=== PATIENT | male | born 1985 | race Hispanic/Latino ===

== ENCOUNTER 2017-07-05 16:31 | Emergency (ER) | payer OTHER ==
[~2017-07-05] VITALS: Ht 175.3 cm; Wt 125.2 kg
[~2017-07-05 16:31] MED LIST: ACETAMINOPHEN-1 EAC1 PO; ACYCLOVIR200 MG PO; ADVIL200 MG PO; ANAPROX DS550 MG PO; CEPHALEXIN500 MG PO; CRUTCH1 EACH; DAY TIME COLD-296 ML PO; DICLOFENAC SODI50 MG PO; DOXYCYCLINE HY100 MG PO; GUAIATUSSIN AC10 ML PO; IBUPROFEN800 MG; IBUPROFEN800 MG PO; LEVAQUIN500 MG PO; LIDOCAINE HCL100 ML MT; NAPROSYN500 MG PO; NORCO 5-325 TA1 EACH PO; NYQUIL D COLD295 ML PO; OMEPRAZOLE20 MG PO; PERCOCET 5-3251 EACH PO; PREDNISONE20 MG PO; PRILOSEC20 MG PO; PROCHLORPERAZIN10 MG PO; PROMETHAZINE HC25 M1 PO; TRAMADOL HCL50 MG PO; TYLENOL EXTRA500 MG PO; ZOFRAN ODT4 MG PO; ZOFRAN ODT8 MG PO
[2017-07-05] MEDS ORDERED: CELEBREX100 MG PO (16:39)
[2017-07-05] MEDS ORDERED: PROTONIX40 MG PO (16:39)
[2017-07-05] MEDS ORDERED: ZANTAC150 MG PO (17:54)
== END 2017-07-05 18:20 | disposition home or self-care (01) ==
LOC: ED 16:31
DX: K92.0 Hematemesis (principal); T39.395A Adverse effect of other nonsteroidal anti-inflammatory drugs [NSAID], initial encounter; K21.9 Gastro-esophageal reflux disease without esophagitis; Z87.891 Personal history of nicotine dependence
CPT/HCPCS: 80053; 82150; 83690; 85025; 85610; 85730; 96374; 96375; 99283; J2405

== ENCOUNTER 2018-01-04 14:43 | Emergency (ER) | payer OTHER ==
[~2018-01-04] VITALS: Ht 175.3 cm; Wt 129.7 kg
[~2018-01-04 14:43] MED LIST changes: +CELEBREX100 MG PO; +PROTONIX40 MG PO; +ZANTAC150 MG PO
[2018-01-04] MEDS ORDERED: ONDANSETRON ODT8 MG PO (16:26)
== END 2018-01-04 16:30 | disposition home or self-care (01) ==
LOC: ED 14:43
DX: S09.90XA Unspecified injury of head, initial encounter (principal); W20.8XXA Other cause of strike by thrown, projected or falling object, initial encounter; K21.9 Gastro-esophageal reflux disease without esophagitis; Z87.891 Personal history of nicotine dependence; Z79.899 Other long term (current) drug therapy
CPT/HCPCS: 70450; 80053; 85025; 96374; 96375; 99284; J1885; J2405; J7030

== ENCOUNTER 2018-04-05 14:08 | Emergency (ER) | payer OTHER ==
[~2018-04-05] VITALS: Ht 175.3 cm; Wt 129.7 kg
[~2018-04-05 14:08] MED LIST changes: +ONDANSETRON ODT8 MG PO
[2018-04-05] MEDS ORDERED: OMEPRAZOLE20 MG PO (14:33)
--- OUTSIDE RECORDS SUMMARY | 2018-04-05 16:26 | XMS ---
PreManage Notification: RAFFI MARTIN Security Trimmer Machine Events No recent Security Events currently on file CRITERIA MET - Group Notification CARE PROVIDERS There are no care providers on record at this time. [facility] has no Care Guidelines for this patient. [place] VISIT COUNT (12 MO.) 3 [facility] TOTAL 3 NOTE: Visits indicate total known visits. 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
[2018-04-05] MEDS ORDERED: NORCO 5-325 TA1 EACH PO (16:31)
[2018-04-05] MEDS ORDERED: ZOFRAN ODT4 MG PO (16:31)
== END 2018-04-05 16:40 | disposition home or self-care (01) ==
LOC: ED 14:08
DX: K52.9 Noninfective gastroenteritis and colitis, unspecified (principal); K21.9 Gastro-esophageal reflux disease without esophagitis; Z79.899 Other long term (current) drug therapy
CPT/HCPCS: 74177; 80053; 81001; 83690; 85025; 96374; 96375; 99284; J1170; J2405; Q9967

== ENCOUNTER 2019-05-17 12:33 | Emergency (ER) | payer OTHER ==
[~2019-05-17] VITALS: Ht 175.3 cm; Wt 134.7 kg
[~2019-05-17 12:33] MED LIST changes: +GABAPENTIN100 MG; +IBUPROFEN100 MG/5 M; +IBUPROFEN200 M1 PO; +KEFLEX500 MG PO; +OMEPRAZOLE5 GM; +TRAMADOL HCL50 MG; +ULTRAM50 MG PO
--- OUTSIDE RECORDS SUMMARY | 2019-05-17 12:36 | XMS ---
PreManage Notification: RAFFI MARTIN Security Manager Ship Events No recent Security Events currently on file CRITERIA MET - Group Notification - [facility] - Has Care Guidelines - PDMP CARE PROVIDERS LATASHA WERNER Physician Jack [employer] All Trades 03/13/2019-Current PHONE: Unknown MELODIE SMITH Internal Medicine 04/06/2018-Current PHONE: Unknown Guidelines Source: [facility] Guidelines Date: 03/16/2019 Care Coordination: Mental health services are being provided by [facility].\T\nbsp; Please contact [facility] with mental health concerns.\T\nbsp; [place]/Daw[place] Sawant: [phone]\T\nbsp; [place]: [phone]. Care History Medical/Surgical 04/06/2018 [facility] - Patient is currently established with [facility]. If patient is seen in the ED during business hours. Please contact CHWs at [facility]. Care Recommendation: This patient has had 5 or more Emergency Department visits in the last 12 months.\T\nbsp; Patient requires education on the scope and purpose of the ED as an acute care provider not a Primary Care Provider and should not be utilized for chronic conditions.\T\nbsp; These are guidelines and the provider should exercise clinical judgment when providing care. E.D. VISIT COUNT (12 MO.) 2 CLAYTON Jarvis TOTAL 2 NOTE: Visits indicate total known visits. ED/UCC VISIT TRACKING (12 MO.) 05/17/2019 12:34 [facility] [place] TYPE: Emergency COMPLAINT: - ABD PAIN 03/11/2019 22:[address] [facility] [place] TYPE: Emergency COMPLAINT: - KNEE INJURY DIAGNOSES: - Unspecified internal derangement of right knee - Pain in left knee INPATIENT VISIT TRACKING (12 MO.) No inpatient visits to display in this time frame [id number]
[2019-05-17] MEDS ORDERED: ULTRAM50 MG PO (15:06)
== END 2019-05-17 15:51 | disposition home or self-care (01) ==
LOC: ED 12:33
DX: R10.31 Right lower quadrant pain (principal); K21.9 Gastro-esophageal reflux disease without esophagitis; Z79.899 Other long term (current) drug therapy
CPT/HCPCS: 74177; 80053; 81001; 83690; 85025; 99284-25; C9113; J1885; J2405; Q9967

== ENCOUNTER 2019-05-22 13:17 | Emergency (ER) | payer OTHER ==
[~2019-05-22] VITALS: Ht 175.3 cm; Wt 142.9 kg
--- OUTSIDE RECORDS SUMMARY | 2019-05-22 13:20 | XMS ---
PreManage Notification: RAFFI MARTIN Security Sales And Marketing Representative Events No recent Security Events currently on file CRITERIA MET - Group Notification - [facility] - Has Care Guidelines - PDMP - [facility] - 2 Visits in 30 Days CARE PROVIDERS LATASHA WERNER Physician Air Brake Man 03/13/2019-Current PHONE: Unknown MELODIE SMITH Internal Medicine 04/06/2018-Current PHONE: Unknown Guidelines [facility] Date: 03/16/2019 Care Coordination: Mental health services are being provided by [facility].\T\nbsp; Please contact [facility] with mental health concerns.\T\nbsp; [place]/Dawson Sawant: \T\nbsp; [place]: [phone]. Care History Medical/Surgical 04/06/2018 [facility] - Patient is currently established with [facility]. If patient is seen in the ED during business hours. Please contact CHWs at [facility]. Care Recommendation: This patient has had 5 [...] providing care. E.D. VISIT COUNT (12 MO.) 3 CLAYTON Jarvis TOTAL 3 NOTE: Visits indicate total known visits. ED/UCC VISIT TRACKING (12 MO.) 05/22/2019 13:17 [facility] [place] TYPE: Emergency COMPLAINT: - GLF 05/17/2019 12:34 [facility] [place] TYPE: Emergency COMPLAINT: - ABD PAIN DIAGNOSES: - Right lower quadrant pain - Right lower quadrant pain - Other long-term (current) drug therapy - Unspecified abdominal pain - Left lower quadrant pain - Gastro-esophageal reflux disease without esophagitis 03/11/2019 22:56 [facility] [place] TYPE: Emergency COMPLAINT: - KNEE INJURY DIAGNOSES: - Unspecified internal derangement of right knee - Pain in left knee INPATIENT VISIT TRACKING (12 MO.) No inpatient visits to display in this time frame [email or web address]
--- NOTE | 2019-05-22 21:57 | EKG ---
[facility] [address] [facility] [place] [address] Signed Normal sinus rhythm Possible Left atrial enlargement Left axis deviation Inferior infarct , age undetermined Abnormal ECG When compared with ECG of 24-JAN-2019 09:19, Inferior infarct is now present Confirmed by MARVIN URBANO MD ([id number]) on 05/22/2019 9:56:55 PM Electronically Signed By: MARVIN URBANO MD 05/22/19 2157 PATIENT NAME: DIONNEMARCORAFFI Electrocardiogram DATE OF : 83 PHYSICIAN: MARVIN URBANO MD REPORT #: [id number] REPORT IS CONFIDENTIAL AND NOT TO BE RELEASED WITHOUT AUTHORIZATION
== END 2019-05-22 16:00 | disposition home or self-care (01) ==
LOC: ED 13:17
DX: R55 Syncope and collapse (principal)
CPT/HCPCS: 70450; 71260; 72125; 80053; 84484; 85025; 93005; 93010; 96374; 99284-25; J1885; Q9967

== ENCOUNTER 2019-06-12 00:49 | Emergency (ER) | payer OTHER ==
[~2019-06-12] VITALS: Ht 175.3 cm; Wt 142.9 kg
--- OUTSIDE RECORDS SUMMARY | 2019-06-12 00:52 | XMS ---
PreManage Notification: RAFFI MARTIN Security Process Improvement Specialist Events No recent Security Events currently on file CRITERIA MET - Group Notification - [facility] - Has Care Guidelines - PDMP - [facility] - 2 Visits in 30 Days CARE PROVIDERS LATASHA WERNER Physician City Editor 03/13/2019-Current PHONE: Unknown MELODIE SMITH Internal Medicine 04/06/2018-Current PHONE: Unknown Guidelines Source: [facility] Guidelines Date: 03/16/2019 Care Coordination: Mental health services are being provided by [facility].\T\nbsp; Please contact [facility] with mental health concerns.\T\nbsp; [place]/Dawson Sawant: \T\nbsp; [place]: [phone]. E.D. VISIT COUNT (12 MO.) 4 CLAYTON Jarvis TOTAL 4 NOTE: Visits indicate total known visits. ED/UCC VISIT TRACKING (12 MO.) 06/12/2019 00:50 [facility] [place] TYPE: Emergency COMPLAINT: - OD 05/22/2019 13:17 [facility] [place] TYPE: Emergency COMPLAINT: - GLF DIAGNOSES: - Syncope and collapse 05/17/2019 12:34 [facility] [place] TYPE: Emergency COMPLAINT: - ABD PAIN DIAGNOSES: - Right lower quadrant pain - Right lower quadrant pain - Other senior care (current) drug therapy - Unspecified abdominal pain - Left lower quadrant pain - Gastro-esophageal reflux disease without esophagitis 03/11/2019 22:56 [facility] [place] TYPE: Emergency COMPLAINT: - KNEE INJURY DIAGNOSES: - Unspecified internal derangement of right knee - Pain in left knee INPATIENT VISIT TRACKING (12 MO.) No inpatient visits to display in this time frame [id number]
[2019-06-12] MEDS ORDERED: NEURONTIN300 MG PO (01:03)
--- NOTE | 2019-06-12 19:28 | EKG ---
[facility] [address] [facility] [place], [place] [address] Signed Normal sinus rhythm Normal ECG When compared with ECG of 22-MAY-2019 13:44, QRS axis shifted right Criteria for Inferior infarct are no longer present Confirmed by CORINE BEGUM DO ([id number]) on 06/12/2019 7:28:05 PM Electronically Signed By: CORINE BEGUM DO 06/12/19 1928 PATIENT NAME: RAFFI MARTIN Electrocardiogram DATE OF : [birth year] PHYSICIAN: CORINE BEGUM DO REPORT #: [id number] REPORT IS CONFIDENTIAL AND NOT TO BE RELEASED WITHOUT AUTHORIZATION
== END 2019-06-12 04:00 | disposition home or self-care (01) ==
LOC: ED 00:49
DX: T42.6X2A Poisoning by other antiepileptic and sedative-hypnotic drugs, intentional self-harm, initial encounter (principal); K21.9 Gastro-esophageal reflux disease without esophagitis; Z79.899 Other long term (current) drug therapy
CPT/HCPCS: 80053; 80176; 81001; 84443; 85025; 93005; 93010; 99284-25; G0480

== ENCOUNTER 2019-06-30 06:00 | Day surgery (SDC) | payer OTHER ==
[~2019-06-30] VITALS: Ht 175.3 cm; Wt 131.5 kg
[~2019-06-30 06:00] MED LIST changes: +NEURONTIN300 MG PO
--- NOTE | 2019-06-30 08:11 | NUR ---
06/30/19 0811 Brie Hartman 0810- PT TO PACU IN LL POSITION EYES CLOSED. BREATHING EASY AND UNLABORED SP02 >95% ON 6 RENATA VIA SIMPLE MASK. VENTILATING WELL. REPORT RECEIVED FROM SOLE DYER.
--- NOTE | 2019-07-01 06:35 | OR ---
[facility] [address] [place], [place] [address] Signed DATE OF OPERATION: 06/30/2019 SURGEON: Debbie Sibley MD PREOPERATIVE DIAGNOSES: 1. Chronic diarrhea. 2. Guaiac-positive stool. 3. Pruritus ani. POSTOPERATIVE DIAGNOSES: 1. 8 mm polyp at 5 cm. 2. 10 mm polyp at 30 cm. 3. 8 mm polyp at 38 cm. 4. 6 mm polyp at 60 cm. 5. 6 mm polyp at 20 cm. 6. Pruritus ani. PROCEDURE: Colonoscopy with snare polypectomy, hot biopsy, and random cold biopsies. ESTIMATED BLOOD LOSS: None. INDICATIONS: Raffi is a 33-year-old obese gentleman with a very full round face and very heavy neck. He has very severe sleep apnea. He has to use CPAP at home. He has been through a knee arthroscopy and had to have an anesthesia provider help him rather significantly during the procedure. In the meantime, he has been asked to see me for a colonoscopy. He said he has had diarrhea for at least 15 years. He also has guaiac-positive stool. His blood work and his stool studies were ordered, but they are still pending. He had an upper endoscopy in 2016. He had gastric duodenitis with two ulcers in the antrum along with a small hiatal hernia. He had just a little esophagitis in his distal esophagus. He has been doing well on his omeprazole. He is also complaining about significant pruritus ani. He had been asked to see me with respect to the above for colonoscopy. I gave him our handout on pruritus ani and we went through that in great detail. We also went through colonoscopy. He understands the nature of the colonoscopy along with its risks including, but not limited to gas bloating, crampy abdominal pain, bleeding, perforation requiring surgery, and missed diagnosis. In addition, he understands the need for the IV conscious sedation. Because of what we described above, he requires an anesthesia provider to help with increased monitoring of his airway as Electronically Signed By: DEBBIE SIBLEY MD 07/01/19 0635 PATIENT NAME: RAFFI MARTIN OPERATIVE REPORT DATE OF : [birth year] REPORT #: [id number] PHYSICIAN: DEBBIE SIBLEY MD PCP: LATASHA WERNER PAC REPORT IS CONFIDENTIAL AND NOT TO BE RELEASED WITHOUT AUTHORIZATION [facility] [address] [place] [address] Signed well as sedation with propofol. In fact that proved to be a hurtado decision today. He required constant airway control. He and his had expressed understanding and wished to proceed. PROCEDURE NOTE: Raffi was taken into our endoscopy suite and placed in the left lateral decubitus position. We could easily see moderately significant pruritus ani with irritation and islands of granulation tissue around his anus. He has no external hemorrhoids. He had good sphincter tone. His prostate gland is soft. The adult colonoscope was introduced and advanced under direct visualization of the camera. We could easily see the appendiceal orifice and the ileocecal valve. We took pictures throughout for photodocumentation. We made several attempts to pass the scope into the terminal ileum without success. The scope was then slowly withdrawn. We have taken random cold biopsies throughout the colon because of the history of diarrhea. However, we saw no evidence of any inflammatory changes throughout the colon. Also, he had a number of fairly significant polyps spread throughout the colon as described above. We took those out with a combination of the snare and a hot biopsy forceps. I believe there was a polyp at 38 cm that we were unable to capture. Once in the rectum, the scope had been retroflexed and really no additional pathology noted above the anal canal. The rectum itself was unremarkable. After this, the gas was suctioned out. The colonoscope removed. Raffi tolerated the procedure quite well. RECOMMENDATIONS: I will see Raffi back in my office in 7 to 14 days to review his results. Debbie Sibley MD [facility]/MODL /[id number] cc: MD Sami Staton MD Electronically Signed By: DEBBIE SIBLEY MD 07/01/19 0635 PATIENT NAME: RAFFI MARTIN OPERATIVE REPORT DATE OF : [birth year] REPORT #: [id number] PHYSICIAN: DEBBIE SIBLEY MD PCP: LATASHA WERNER PAC REPORT IS CONFIDENTIAL AND NOT TO BE RELEASED WITHOUT AUTHORIZATION [facility] [address] [place] [address] Signed Copies: CELESTINO EUGENE MD, ANDREW L MD ~ Electronically Signed By: DEBBIE SIBLEY MD 07/01/19 0635 PATIENT NAME: MARIORAFFI OPERATIVE REPORT DATE OF : [birth year] REPORT #: [id number] PHYSICIAN: DEBBIE SIBLEY MD PCP: LATASHA WERNER PAC REPORT IS CONFIDENTIAL AND NOT TO BE RELEASED WITHOUT AUTHORIZATION
--- NOTE | 2019-07-03 11:58 | PATH ---
[facility] [address] [place], [place] [address] Signed SPECIMEN(S): A COLON POLYP AT 5 CM SPECIMEN(S): B COLON POLPY AT 30 CM SPECIMEN(S): C COLON POLYP AT 38 CM SPECIMEN(S): D RANDOM COLON SPECIMEN(S): E COLON POLYP AT 60 CM SPECIMEN(S): F COLON POLYP AT 28 CM SPECIMEN SOURCE: A. COLON POLYP AT 5 CM B. COLON POLPY AT 30 CM C. COLON POLYP AT 38 CM D. RANDOM COLON E. COLON POLYP AT 60 CM F. COLON POLYP AT 28 CM CLINICAL HISTORY: History of diarrhea. Post: Multiple polyps. Pruritus ani. MICROSCOPIC DESCRIPTION: Histologic sections of all submitted blocks are examined by light microscopy. These findings, together with the gross examination, support the pathologic diagnosis. FINAL PATHOLOGIC DIAGNOSIS: A. Colon polyp at 5 cm, biopsies: - Fragments of tubular adenoma. B. Colon polyp at 30 cm, biopsies: - Fragments of tubular adenoma. C. Colon polyp at 38 cm, biopsy: - Tubular adenoma. D. Random colon, biopsies: - Unremarkable colonic mucosa. - Negative for active colitis, granulomas or dysplasia. E. Colon polyp at 60 cm, biopsy: - Tubular adenoma. F. Colon polyp at 28 cm, biopsy: - Tubular adenoma. AMB:emb:C2NR GROSS DESCRIPTION: Six specimens are received in six containers, labeled "RS." A. The specimen, labeled "RS, colon polyp at 5 cm," is received in formalin PATIENT NAME: RAFFI MARTIN PATHOLOGY DATE OF : [birth year] REPORT #: [id number] PHYSICIAN: TOVA DRAKE PCP: LATASHA WERNER PAC REPORT IS CONFIDENTIAL AND NOT TO BE RELEASED WITHOUT AUTHORIZATION [facility] [address] [place], [place] [address] Signed and consists of a single 1.0 cm, young-brown, polypoid nodule. The specimen is inked, bisected and entirely submitted in cassette (A1). B. The specimen, labeled "RS, colon polyp at 30 cm," is received in formalin and consists of a single 0.7 cm, red-brown, polypoid nodule. The specimen is inked, bisected and entirely submitted in cassette (B1). C. The specimen, labeled "RS, colon polyp at 38 cm," is received in formalin and consists of a single 0.5 cm, red-brown, polypoid nodule. The specimen is entirely submitted in cassette (C1). D. The specimen, labeled "RS, random colon," is received in formalin and consists of five, 0.2-0.3 cm, young-brown tissue fragments. The specimen is entirely submitted in cassette (D1). E. The specimen, labeled "RS, colon polyp at 60 cm," is received in formalin and consists of a single 0.3 cm, young tissue fragment. The specimen is entirely submitted in cassette (E1). F. The specimen, labeled "RS, colon polyp at 28 cm," is received in formalin and consists of a single 0.8 cm, red-brown, polypoid nodule. The specimen is inked, bisected and entirely submitted in cassette (F1). AM (under the direct supervision of a pathologist) The Gross Description was prepared using a voice recognition system. The report was reviewed for accuracy; however, sound-alike word errors, addition and/or deletions may occur. If there is any question about this report, please contact Client Services. PERFORMING LABORATORY: The technical component was performed by [facility], [address] [place] [address] (Editor Farm Journal: Radha Gallo MD; CLIA# [id number]). Professional interpretation was performed by [facility], [address] [address] (Editor Farm Journal: Hugh Mcclellan M.D.; CLIA#: [id number]). Diagnostician: Radha Gallo MD Pathologist Electronically Signed 07/03/2019 Copies: PATIENT NAME: RAFFI MARTIN PATHOLOGY DATE OF : [birth year] REPORT #: [id number] PHYSICIAN: TOVA PATHOLOGY PCP: LATASHA WERNER PAC REPORT IS CONFIDENTIAL AND NOT TO BE RELEASED WITHOUT AUTHORIZATION [facility] [address] [place] [address] Signed ~ PATIENT NAME: RAFFI MARTIN PATHOLOGY DATE OF : [birth year] REPORT #: [id number] PHYSICIAN: TOVA DRAKE PCP: LATASHA WERNER PAC REPORT IS CONFIDENTIAL AND NOT TO BE RELEASED WITHOUT AUTHORIZATION
== END 2019-06-30 09:13 | disposition home or self-care (01) ==
LOC: DS 06:00 → OPS 06:00 → DS 06:45 → OPS 09:13
PROVIDERS: Colon & Rectal Surgery
PROC: 0DBE8ZZ Excision of Large Intestine, Via Natural or Artificial Opening Endoscopic (ICD-10-PCS; principal; 2019-06-30 06:45)
DX: D12.6 Benign neoplasm of colon, unspecified (principal); K52.9 Noninfective gastroenteritis and colitis, unspecified; L29.0 Pruritus ani; J32.9 Chronic sinusitis, unspecified; J45.909 Unspecified asthma, uncomplicated; F41.9 Anxiety disorder, unspecified; E66.01 Morbid (severe) obesity due to excess calories; G47.30 Sleep apnea, unspecified; Z98.890 Other specified postprocedural states; Z87.891 Personal history of nicotine dependence; Z68.42 Body mass index [BMI] 45.0-49.9, adult; Z79.899 Other long term (current) drug therapy
CPT/HCPCS: J2250; J2704; J3010; J7121

== ENCOUNTER 2019-07-24 12:06 | Emergency (ER) | payer OTHER ==
[~2019-07-24] VITALS: Ht 175.3 cm; Wt 130.6 kg
--- OUTSIDE RECORDS SUMMARY | 2019-07-24 12:10 | XMS ---
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 Carriage Operator Events No recent Security Events currently on file CRITERIA MET - Group Notification - [facility] Has Care Guidelines - PDMP CARE PROVIDERS LATASHA WERNER Physician Mill Laborer 03/13/2019-Current [place] PHONE: Unknown MELODIE SMITH Internal Medicine 04/06/2018-Current PHONE: Unknown Guidelines [email or web address] Guidelines Date: 03/16/2019 Care Coordination: Mental health services are being provided by [facility].\T\nbsp; Please contact [facility] with mental health concerns.\T\nbsp; [place]/Dawson Sawant: [phone]\T\nbsp; [place]: [phone]. E.D. VISIT COUNT (12 MO.) [address] [facility] TOTAL 5 NOTE: Visits indicate total known visits. ED/UCC VISIT TRACKING (12 MO.) 07/24/2019 12:07 [facility] [place] TYPE: Emergency COMPLAINT: - KNEE PAIN, INJ 06/12/2019 00:50 [facility] [place] TYPE: Emergency COMPLAINT: - OD DIAGNOSES: - Poisn by oth antieplptc and sed-hypntc drugs, slf-hrm, init - Other mcc (current) drug therapy - Dizziness and giddiness - Gastro-esophageal reflux disease without esophagitis 05/22/2019 13:17 [facility] [place] TYPE: Emergency COMPLAINT: - GLF DIAGNOSES: - Syncope and collapse 05/17/2019 12:34 [facility] [place] TYPE: Emergency COMPLAINT: - ABD PAIN DIAGNOSES: - Right lower quadrant pain - Right lower quadrant pain - Other mcc (current) drug therapy - Unspecified abdominal pain - Left lower quadrant pain - Gastro-esophageal reflux disease without esophagitis 03/11/2019 22:56 [facility] [place] TYPE: Emergency COMPLAINT: - KNEE INJURY DIAGNOSES: - Unspecified internal derangement of right knee - Pain in left knee INPATIENT VISIT TRACKING (12 MO.) No inpatient visits to display in this time frame [email or web address]
[2019-07-24] MEDS ORDERED: NORCO 5-325 TA1 EACH PO (13:48)
== END 2019-07-24 14:06 | disposition home or self-care (01) ==
LOC: ED 12:06
DX: S80.251A Superficial foreign body, right knee, initial encounter (principal); K21.9 Gastro-esophageal reflux disease without esophagitis; Z79.899 Other long term (current) drug therapy; W45.8XXA Other foreign body or object entering through skin, initial encounter
CPT/HCPCS: 99283

== ENCOUNTER 2019-10-03 08:00 | Day surgery (SDC) | payer OTHER ==
[~2019-10-03] VITALS: Ht 175.3 cm; Wt 133.4 kg
[~2019-10-03 08:00] MED LIST changes: +GABAPENTIN300 MG PO; +IBUPROFEN200 MG PO
--- NOTE | 2019-10-03 11:17 | NUR ---
10/03/19 1117 Jennifer,Neris 1108 PT ARRIVED TO PACU ON RA AND RESP EVEN AND UNLABORED. PT DENIES PAIN AND NAUSEA. HOB DECREASED AND FLUIDS INCREASED DUE TO DECREASED BP. PT WAKES OFF AND ON AND SPINAL LEVEL T-9. PT RPEORTS "I CAN'T MOVE MY LEGS." SPINAL EDUCATION GIVEN. 1117 PT DEEP BREAHTING OFF AND ON,
--- NOTE | 2019-10-03 12:39 | NUR ---
1145: PATIENT BACK IN DAY SURGERY ROOM FROM PACU. DENIES PAIN. SPINAL AT L-1. ABLE TO MOVE LEG, BUT NOT WIGGLE TOES. RIGHT PEDAL PULSES STRONG. CAP REFILL TO RIGHT TOES WNL. RIGHT FOOT WARM. C/O NUMBNESS TO RIGHT FOOT. RIGHT KNEE DRESSING CDI. RIGHT LEG ELEVATED ON PILLOW. ICE PACK TO RIGHT KNEE. IV SITE WNL. VS CHECKED. C/ NAUSEA. CRACKERS AND ICE WATER PLACED AT BEDSIDE. FRIEND AT BEDSIDE. SCD ON LEFT LEG. CALL LIGHT WITHIN REACH. EDUCATED PATIENT THAT HE CAN NOT GET OUT OF BED WITHOUT ASSISTANCE. 1200: PATIENT MEDICATED FOR NAUSEA WITH IV ZOFRAN.
--- NOTE | 2019-10-03 13:38 | NUR ---
PT IS HELPED TO EDGE OF BED TO USE URINAL. HE REPORTS THAT HE HAS A LOT OF PRESSURE IN HIS LOWER ABDOMEN WHERE HIS BLADDER IS. HE IS ABLE TO VOID 100MLS OF DARK YELLOW URINE. HE STATES THAT HE HAD TO FORCE IT BECAUSE HE COULDN'T FEEL IT.
[2019-10-03] MEDS ORDERED: NORCO 10-325 T1 EACH PO (14:38)
[2019-10-03] MEDS ORDERED: ULTRAM50 MG PO (14:38)
--- NOTE | 2019-10-03 15:11 | NUR ---
1400) ADDED MORE ICE TO RIGHT KNEE FOR EXTREAM PAIN. DR VICTORIA ADVISED SAID HE HAS HAD THE MAX DOSE OF PAIN MEDICATION. 1420) PAIN BETTER AT 6/10
--- NOTE | 2019-10-03 16:01 | NUR ---
PATIENT STOOD ON LEFT LEG AND WAS ABLE TO TURN AND GET INTO HIS WHEEL CHAIR ON HIS OWN.
--- NOTE | 2019-10-04 09:58 | OR ---
[facility] [address] [place], [place] [address] Signed DATE OF OPERATION: 10/03/2019 SURGEON: Ilya Victoria MD PREOPERATIVE DIAGNOSIS: Osteochondral lesion of lateral femoral condyle, right knee. POSTOPERATIVE DIAGNOSES: 1. Osteochondral lesion of lateral femoral condyle, right knee. 2. Loose body, right knee. 3. Grade 2 to grade 3 degenerative articular waste/materials exchange specialist the posterior aspect of the patella, the femoral trochlea, the medial and the lateral femoral condyles. PROCEDURE: Arthrotomy, right knee with OATS procedure. SPECIMENS: There were no specimens. COMPLICATIONS: There were no complications. TOURNIQUET TIME: About 50 minutes. WHAT WAS DONE: The patient was taken to the operating room. After anesthesia was induced and the airway secured, the patient was positioned, prepped and draped in routine sterile fashion. The leg was exsanguinated via elevation. Pneumatic tourniquet was inflated to 300 mmHg. A straight anterior incision was made over the knee centered on the patella. Skin was divided sharply. Subcutaneous tissue was bluntly spread. Hemostasis was achieved with electrocautery. We then retracted the medial flap and made an anteromedial arthrotomy. The patella was then slid over the lateral to the lateral side, but it was appreciated there were fairly severe degenerative changes over the posterior aspect of the patella along with the femoral condyle. There were also significant areas of wear on the medial and lateral femoral condyles. However, the osteochondral lesion noted on imaging was identified. Using a Sizer, it appeared to be about an 8 mm lesion. We therefore harvested an 8 mm x 15 mm plug off the superolateral but nonarticular portion of the lateral femoral condyle. We then removed the corresponding plug on the distal femur and impacted the osteochondral graft. We did Electronically Signed By: ILYA VICTORIA MD 10/04/19 0958 PATIENT NAME: RAFFI MARTIN OPERATIVE REPORT DATE OF : [birth year] REPORT #: [id number] PHYSICIAN: ILYA VICTORIA MD PCP: LATASHA WERNER PAC REPORT IS CONFIDENTIAL AND NOT TO BE RELEASED WITHOUT AUTHORIZATION [facility] [address] [place], [place] [address] Signed take the cartilage off the recipient site, bone plug and tamped it into the donor site of the bone area. The wounds were gently irrigated. At this point, we had an excellent reconstruction with nothing being high or low at the recipient site. The knee was irrigated again and closed in standard fashion. A sterile dressing applied. The patient was awakened and taken to recovery room where he arrived in stable condition. Counts were correct and antibiotic protocols were followed. Ilya Victoria MD [facility]/MODL /[id number] Copies: ~ Electronically Signed By: ILYA VICTORIA MD 10/04/19 0958 PATIENT NAME: RAFFI MARTIN OPERATIVE REPORT DATE OF : [birth year] REPORT #: [id number] PHYSICIAN: ILYA VICTORIA MD PCP: LATASHA WERNER PAC REPORT IS CONFIDENTIAL AND NOT TO BE RELEASED WITHOUT AUTHORIZATION
== END 2019-10-03 16:00 | disposition home or self-care (01) ==
LOC: DS 08:00 → OPS 08:00 → DS 11:40 → OPS 16:00
PROVIDERS: Orthopaedic Surgery
PROC: 0SUC07Z Supplement Right Knee Joint with Autologous Tissue Substitute, Open Approach (ICD-10-PCS; principal; 2019-10-03 09:00)
DX: M23.91 Unspecified internal derangement of right knee (principal); M23.41 Loose body in knee, right knee; F32.9 Major depressive disorder, single episode, unspecified; E66.9 Obesity, unspecified; G47.33 Obstructive sleep apnea (adult) (pediatric); F12.90 Cannabis use, unspecified, uncomplicated; K21.9 Gastro-esophageal reflux disease without esophagitis; F41.9 Anxiety disorder, unspecified; K27.9 Peptic ulcer, site unspecified, unspecified as acute or chronic, without hemorrhage or perforation; Z79.899 Other long term (current) drug therapy; Z99.89 Dependence on other enabling machines and devices; Z68.41 Body mass index [BMI] 40.0-44.9, adult
CPT/HCPCS: J0690; J1100; J2001; J2250; J2405; J2704; J2795; J3010; J7121

== ENCOUNTER 2019-11-23 21:56 | Emergency (ER) | payer OTHER ==
[~2019-11-23] VITALS: Ht 175.3 cm; Wt 132.4 kg
[~2019-11-23 21:56] MED LIST changes: +NORCO 10-325 T1 EACH PO
--- OUTSIDE RECORDS SUMMARY | 2019-11-23 21:58 | XMS ---
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 No recent Security Events currently on file CRITERIA MET - Group Notification - [facility] Has Care Guidelines - PDMP CARE PROVIDERS LATASHA WERNER Physician Home Advisor 03/13/2019-Current PHONE: Unknown MELODIE SMITH Internal Medicine 04/06/2018-Current PHONE: Unknown Guidelines [facility] [place] Guidelines Date: 03/16/2019 Care Coordination: Mental health services are being provided by [facility].\T\nbsp; Please contact [facility] with mental health concerns.\T\nbsp; [place]: [phone]\T\nbsp; [place]: [phone]. E.D. VISIT COUNT (12 MO.) 6 [facility] TOTAL 6 NOTE: Visits indicate total known visits. ED/UCC VISIT TRACKING (12 MO.) 11/23/2019 21:57 [facility] TYPE: Emergency COMPLAINT: - CHEST PAIN 07/24/2019 12:07 [facility] TYPE: Emergency COMPLAINT: - KNEE PAIN, INJ DIAGNOSES: - Other intermediate (current) drug therapy - Gastro-esophageal reflux disease without esophagitis - Superficial foreign body, right knee, initial encounter - Other foreign body or object entering through skin, initial e - Pain in right knee 06/12/2019 00:50 [facility] TYPE: Emergency COMPLAINT: - OD DIAGNOSES: - Poisoning by other antiepileptic and sedative-hypnotic drugs, - Other termite helper (current) drug therapy - Dizziness and giddiness - Gastro-esophageal reflux disease without esophagitis 05/22/2019 13:17 [facility] TYPE: Emergency COMPLAINT: - GLF DIAGNOSES: - Syncope and collapse 05/17/2019 12:34 [facility] TYPE: Emergency COMPLAINT: - ABD PAIN DIAGNOSES: - Right lower quadrant pain - Right lower quadrant pain - Other intermediate (current) drug therapy - Unspecified abdominal pain - Left lower quadrant pain - Gastro-esophageal reflux disease without esophagitis 03/11/2019 22:[address] [facility] [place] TYPE: Emergency COMPLAINT: - KNEE INJURY DIAGNOSES: - Unspecified internal derangement of right knee - Pain in left knee INPATIENT VISIT TRACKING (12 MO.) No inpatient visits to display in this time frame [email or web address]
--- NOTE | 2019-11-24 17:38 | EKG ---
[facility] [address] [place], [place] [address] Signed Sinus rhythm with marked sinus arrhythmia Otherwise normal ECG When compared with ECG of 27-SEP-2019 10:13, No significant change was found Confirmed by CORINE BEGUM DO ([id number]) on 11/24/2019 5:38:27 PM Electronically Signed By: CORINE BEGUM DO 11/24/19 1738 PATIENT NAME: RAFFI MARTIN Electrocardiogram DATE OF : 83 PHYSICIAN: CORINE BEGUM DO REPORT #: [id number] REPORT IS CONFIDENTIAL AND NOT TO BE RELEASED WITHOUT AUTHORIZATION
== END 2019-11-23 23:30 | disposition home or self-care (01) ==
LOC: ED 21:56
DX: R07.89 Other chest pain (principal); K21.9 Gastro-esophageal reflux disease without esophagitis; Z79.899 Other long term (current) drug therapy
CPT/HCPCS: 71045; 80053; 84484; 85025; 85379; 93005; 93010; 99285-25

== ENCOUNTER 2020-10-18 00:49 | Emergency (ER) | payer OTHER ==
[~2020-10-18] VITALS: Ht 175.3 cm; Wt 132.4 kg
--- OUTSIDE RECORDS SUMMARY | 2020-10-18 00:52 | XMS ---
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 TOTAL 2 NOTE: Visits indicate total known visits. ED/UCC VISIT TRACKING (12 MO.) 10/18/2020 00:50 [facility] TYPE: Emergency COMPLAINT: - COUGH,SORE THROAT 11/23/2019 21:57 [facility] TYPE: Emergency COMPLAINT: - CHEST PAIN DIAGNOSES: - Other chest pain - Chest pain, unspecified - Gastro-esophageal reflux disease without esophagitis - Other fdc (current) drug therapy INPATIENT VISIT TRACKING (12 MO.) No inpatient visits to display in this time frame [email or web address]
[2020-10-18] MEDS ORDERED: FLUOXETINE HCL60 MG PO (01:01)
[2020-10-18] MEDS ORDERED: TESSALON PERLE100 MG PO (02:42)
== END 2020-10-18 02:50 | disposition home or self-care (01) ==
LOC: ED 00:49
DX: J02.9 Acute pharyngitis, unspecified (principal); Z20.822 Contact with and (suspected) exposure to COVID-19; K21.9 Gastro-esophageal reflux disease without esophagitis; Z79.899 Other long term (current) drug therapy
CPT/HCPCS: 71045; 87081; 87880; 99283-25; C9803; U0003

== ENCOUNTER 2021-05-07 19:33 | Emergency (ER) | payer OTHER ==
[~2021-05-07] VITALS: Ht 175.3 cm; Wt 140.2 kg
[~2021-05-07 19:33] MED LIST changes: +FLUOXETINE HCL60 MG PO; +TESSALON PERLE100 MG PO
--- OUTSIDE RECORDS SUMMARY | 2021-05-07 19:40 | XMS ---
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 TOTAL 2 NOTE: Visits indicate total known visits. ED/UCC VISIT TRACKING (12 MO.) 05/07/2021 19:34 [facility] TYPE: Emergency COMPLAINT: - STOMACH PAIN,VOMITING 10/18/2020 00:50 [facility] TYPE: Emergency COMPLAINT: - COUGH,SORE THROAT DIAGNOSES: - Other group home (current) drug therapy - Cough - Gastro-esophageal reflux disease without esophagitis - Acute pharyngitis, unspecified INPATIENT VISIT TRACKING (12 MO.) No inpatient visits to display in this time frame [id number]
== END 2021-05-07 23:00 | disposition home or self-care (01) ==
LOC: ED 19:33
DX: K52.9 Noninfective gastroenteritis and colitis, unspecified (principal); Z20.822 Contact with and (suspected) exposure to COVID-19; Z79.899 Other long term (current) drug therapy
CPT/HCPCS: 80053; 81001; 83690; 83735; 85025; 96374; 96375; 99284-25; A9270; C9113; C9803; J2405; J7030; J7040; U0003